=== PATIENT | female | born 1950 | race Caucasian/White ===

== ENCOUNTER 2016-08-19 09:20 | Inpatient (IN) ==
[2016-08-19] MEDS ORDERED: ONDANSETRON 4 MG/2 ML VIAL IV STA (10:13)
[2016-08-19] MEDS ORDERED: SODIUM CHLORIDE 0.9% 500 ML IV STA (10:13)
[2016-08-19 10:25] LABS: Basophils % 0.4 % (0.0-0.8); Eosinophils # 0.1 10*3/uL (0.0-0.87); Eosinophils % 1.4 % (0.00-10.9); Hematocrit 33.2 VOL% (35.7-47.0); Hemoglobin 11.1 GM/DL (12.0-16.0); Immature Granulocytes % 0.6 %; Immature Granulocytes Absolute 0.06 #; Lymphocytes # 0.7 10*3/uL (1.4-4.0); Lymphocytes % 7.3 % (21.3-54.2); Mean Corpuscular HGB Conc 33.4 GM/DL (32-36); Mean Corpuscular Hemoglobin 30 PG (27-34); Mean Corpuscular Volume 90.2 FL (87-102); Mean Platelet Volume 10.2 FL (9.6-12.0); Monocytes # 0.6 10*3/uL (0.11-0.8); Monocytes % 6.1 % (1.7-12.7); Neutrophils # 8.5 10*3/uL (1.4-7.4); Neutrophils % 84.2 % (38.7-73.9); Platelet Count 242 T/CUMM (130-400); Red Blood Count 3.68 MC/CUMM (3.8-5.5); Red Cell Distribution Width 12.9 % (9.3-17.3); White Blood Count 10.1 T/CUMM (4-12)
[2016-08-19] MEDS ORDERED: ONDANSETRON 4 MG/2 ML VIAL ONE ×2 (10:32→10:57)
[2016-08-19 10:38] LABS: Bilirubin,Total 0.5 MG/DL (0.2-1.0); Calcium 8.7 MG/DL (8.5-10.1); Magnesium 2.3 MG/DL (1.8-2.4); Osmolality,Calculated 281.5 MOS/KG (273-304); Potassium 3.2 MMOL/L (3.5-5.1); Total Protein 5.7 G/DL (6.4-8.3)
[2016-08-19 10:44] LABS: Band Neutrophils 2 % (0-10); Eosinophils 3 % (0-10); Hypochromasia Slight; Lymphocytes 3 % (20-55); Platelet Estimate Normal; Segmented Neutrophils 88 % (50-85); Total Cells Counted 100
--- NOTE | 2016-08-19 10:45 | CT Report ---
History: Left lower quadrant and suprapubic pain Date: 08/19/2016 Study: CT abdomen and pelvis without contrast Comparison exam: February 11, 2009 CT abdomen and pelvis Technique: Spiral CT sections were obtained from the lung bases to the pubic symphysis without contrast. The CT exam was performed using one or more of the following dose reduction techniques: Automated exposure control, adjustment of the mA and/or kV according to patient size, or use of iterative reconstruction technique. CT abdomen: The partially visualized lung bases are generally clear without dominique pneumonia. There is no gross pleural or pericardial effusion. There is no evidence of pneumoperitoneum. There is some minimal diffuse fatty infiltration of the liver. The liver, pancreas, bile ducts, adrenal glands, and fluid-filled gallbladder are otherwise unremarkable. The spleen measures mildly prominent at 13.1 x 13.6 x 9.6 cm maximum dimensions, but is grossly similar. There is no hydronephrosis. There is no radiopaque renal or ureteral stone. There is relatively mild atrophy of the left kidney. There is mild ectasia of the infrarenal abdominal aorta 2.4 cm. There is moderate calcification of the wall of the abdominal aorta. There is no evidence of appendicitis. There is some shotty but stable mild retroperitoneal lymphadenopathy in the left para-aortic area, unchanged. CT pelvis: There is some diffuse wall thickening of the sigmoid colon in a region of diverticuli compatible with diverticulitis. There is strandy and hazy inflammatory change in the pericolonic fat. There is no soft tissue mass of the pelvis. There is no encapsulated fluid collection to suggest abscess. The uterus is surgically absent. Impression: Diverticulitis sigmoid colon without abscess. No free intraperitoneal air is identified. No significant changes otherwise compared to the previous study PROCEDURE INTERPRETED AT [facility] DEPARTMENT OF RADIOLOGY Final Report Signed by: Dr. Tasha Teague
[2016-08-19] MEDS ORDERED: cefTRIAXone 1,000 MG VIAL ONE (10:57)
[2016-08-19] MEDS ORDERED: POTASSIUM CHLORIDE 20 MEQ TABLET PO STA (11:08)
[2016-08-19] MEDS ORDERED: LEVOFLOXACIN INJ 500 MG in PREMIX 1 EACH IV STA (11:08)
[2016-08-19] MEDS ORDERED: metroNIDAZOLE INJ 500 MG in PREMIX 1 EACH IV STA (11:08)
[2016-08-19] MEDS ORDERED: HYDROmorphone 2 MG/1 ML VIAL IV STA (11:09)
--- NOTE | 2016-08-19 11:16 | Emergency Department Note ---
Rome Carter Brooke, am scribing for, and in the presence of, Nick Greer MD 10:03. Percy Carter Phillip K, MD, personally performed the services described in this documentation, ascribed by Komal Peter in my presence, and it is both accurate and complete . Arrival - Arrival Chief Complaint: Abdominal / Flank Pain Stated Complaint: abd pain and back pain,nauseated ED Nursing Triage Note: C/o lower abd pain-onset two days ago. Reports that she is having trouble having a bowel movement. Last BM two days ago. +nausea. + diaphoresis. Mode of Arrival: Wheelchair Limitations: No Limitations Source: Patient, RN Notes Reviewed Time Seen by Provider: 08/19/16 09:43 - History of Present Illness HPI Narrative: Patient is a 65 year old female who presents to the ED with c/o lower abdominal pain that started two days ago. Patient says the pain is located over the bladder. She says the pain is worsened when walking and states "it feels like someone hitting me with a hammer." Patient says she now has lower back pain that is located on both sides. She denies having any fever and vomiting but says she has been sweating a lot and been nauseated. Her last bowel movement was a couple of days ago but she says that is normal for her. Patient has history of diverticulitis but says this pain does not feel the same. The last time she had diverticulitis was a couple of years ago and she says she watches what she eats. Patient still has her appendix and gallbadder but has had a hysterectomy. Patient has PMHx of HTN, anxiety, seizures, dyslipidemia, bronchitis, COPD, kidney stones, GERD, and back/neck problems. She is a smoker. Onset (ago): day(s) (2) Date of Last Menstrual Period: hysterectomy Allergies/Adverse Reactions: Allergies Allergy/AdvReac Type Severity Reaction Status Date / Time aspirin Allergy RASH Verified 11/04/14 17:12 Penicillins Allergy ITCHING Verified 11/04/14 17:12 Home Medications: Home Medications Medication Instructions Recorded Confirmed Type Lisinopril/Hydrochlorothiazide 1 tablet PO DAILY 11/04/14 08/19/16 History [Lisinopril-Hctz 20-25 mg Tab] Citalopram [CeleXA] 20 mg PO DAILY #30 tablet 11/06/14 08/19/16 Rx Review of System - Review of System 12 point system: reviewed and no additional remarkable complaints except as stated - Review of System Constitutional: Absent: fever Respiratory: Absent: respiratory distress Gastrointestinal: Present: abdominal pain (lower over bladder), nausea. Absent : vomiting Musculoskeletal: Present: lower back pain (both sides) Skin: Absent: rash Medical,Surgical,& Family Hx - Medical History Cardio: History of: Hypertension Psychological: History of: Anxiety Disorders Neurology: History of: Seizures Endocrine: History of: Dyslipidemia Respiratory: History of: Bronchitis, COPD, Respiratory Problems Genitourinary: History of: Kidney Stones Gastrointestinal: History of: GERD Musculoskeletal: History of: Back/Neck Problems - Surgical History Reproductive Surgeries: Surgical HX of;: Hysterectomy - Family History Family History: Reports;: Family Heart Disease (mother), Family Hypertension ( mother), Family Stroke (mother and grandmother) - Social History Smoking Status: Current every day smoker Frequency of Alcohol Use: None Type of Drug Use: None Exam Vital Signs: Vital Signs Temperature 96.9 F L 08/19/16 09:28 Pulse Rate 87 08/19/16 09:28 Respiratory Rate 20 08/19/16 09:28 Blood Pressure 81/65 08/19/16 09:28 O2 Sat by Pulse Oximetry 98 08/19/16 09:28 - General General appearance: alert, in no apparent distress - Head Head exam: Present: atraumatic, normocephalic - Eye Eye exam: Present: normal appearance, PERRL, EOMI - ENT ENT exam: Present: mucous membranes dry - Neck Neck exam: Present: normal inspection - Chest Chest inspection: Present: normal inspection, symmetric chest wall rise - Respiratory Respiratory exam: Present: wheezes (bilateral diffuse) - Cardiovascular Cardiovascular exam: Present: regular rate, normal rhythm, normal heart sounds - Abdominal Exam Abdominal exam: Present: soft, tenderness (RLQ, suprapubic, and LLQ), normal bowel sounds. Absent: distention, rebound - Extremities Exam Extremities exam: Present: normal inspection. Absent: pedal edema - Back Exam Back exam: Present: normal inspection - Neurological Exam Neurological exam: Present: alert, oriented X3 - Psychiatric Psychiatric exam: Present: normal affect, normal mood - Skin Skin exam: Present: warm, dry, intact, normal color Results - Labs CBC & BMP: 08/19/16 10:01 08/19/16 10:01 Lab Results: I have reviewed the patients labs Labs: Laboratory Tests 08/19/16 10:01 WBC 10.1 RBC 3.68 L Hgb 11.1 L Hct 33.2 L MCV 90.2 MCH 30 MCHC 33.4 RDW 12.9 Plt Count 242 MPV 10.2 Neut % (Auto) 84.2 H Lymph % (Auto) 7.3 L [place] % (Auto) 6.1 Eos % (Auto) 1.4 Baso % (Auto) 0.4 Neut # (Auto) 8.5 H Lymph # (Auto) 0.7 L [place] # (Auto) 0.6 Eos # (Auto) 0.1 Baso # (Auto) 0.0 Immature Gran % 0.6 Nucleated RBC % 0.0 Immature Gran # 0.06 Nucleated RBCs # 0.00 Laboratory Tests 08/19/16 10:01 WBC 10.1 RBC 3.68 L Hgb 11.1 L Hct 33.2 L MCV 90.2 MCH 30 MCHC 33.4 RDW 12.9 Plt Count 242 MPV 10.2 Neut % (Auto) 84.2 H Lymph % (Auto) 7.3 L [place] % (Auto) 6.1 Eos % (Auto) 1.4 Baso % (Auto) 0.4 Neut # (Auto) 8.5 H Lymph # (Auto) 0.7 L [place] # (Auto) 0.6 Eos # (Auto) 0.1 Baso # (Auto) 0.0 Immature Gran % 0.6 Nucleated RBC % 0.0 Immature Gran # 0.06 Nucleated RBCs # 0.00 Laboratory Tests 08/19/16 08/19/16 10:01 10:01 Total Counted 100 Segmented Neutrophils 88 H Band Neutrophils 2 Lymphocytes 3 L Monocytes 4 Eosinophils 3 Platelet Estimate Normal Hypochromasia Slight Sodium 139 Potassium 3.2 L Chloride 106 Carbon Dioxide 23 Anion Gap 13.2 BUN 16 Creatinine 0.80 GFR Calculation 89 BUN/Creatinine Ratio 20.00 Glucose 163 H Calculated Osmolality 281.5 Calcium 8.7 Magnesium 2.3 Total Bilirubin 0.50 AST 17 ALT 28 Alkaline Phosphatase 107 Total Protein 5.7 L Albumin 3.0 L Globulin 2.7 Albumin/Globulin Ratio 1.1 Lipase 57.0 L - Diagnostic Findings Procedure: CT Abdomen and Pelvis: report reviewed by me (Diverticulitis sigmoid colon without abscess. No free intraperitoneal air is identified. No significant changes otherwise compared to the previous study.) Disposition Clinical Impression: Diverticulitis, Hypokalemia Case discussed with: patient Disposition: Still a Patient Condition: Guarded Additional Instructions: Admit to the hospitalist for IV antibiotics.
[2016-08-19] MEDS ORDERED: CIPROFLOXACIN INJ 400 MG in PREMIX 1 EACH IV SCH (11:30)
[2016-08-19] MEDS ORDERED: MAGNESIUM SULF RIDER 2 GM in PREMIX 1 EACH IV PRN (11:30)
[2016-08-19] MEDS ORDERED: PROMETHAZINE 25 MG/1 ML VIAL IM PRN (11:30)
[2016-08-19] MEDS ORDERED: MAGNESIUM SULF RIDER 4 GM in PREMIX 1 EACH IV PRN (11:30)
[2016-08-19] MEDS ORDERED: ONDANSETRON 4 MG/2 ML VIAL IV PRN (11:30)
[2016-08-19] MEDS ORDERED: metroNIDAZOLE 500 MG/100 ML PREMIX IV ONE (11:35)
[2016-08-19] MEDS ORDERED: LEVOFLOXACIN INJ 100 ML IV ONE (11:35)
[2016-08-19] MEDS ORDERED: POTASSIUM CHLORIDE 20 MEQ TABLET PO ONE (11:35)
--- NOTE | 2016-08-19 11:50 | Hospitalist History & Physical ---
<Nathalia Stanleyda - Last Filed: 08/19/16 11:42> Assessment and Plan (1) Diverticulitis Status: Acute Assessment and plan: CT abdomen and pelvis reported diverticula sigmoid colon without abscesses. We will start empiric antibiotic coverage and gently rehydrate. Will start PPIs and consult GI to evaluate. Will manage pain and keep n.p.o. to promote bowel rest. Patient reports episodes similar in nature in the past which was subsequently diagnosed as diverticulitis. Patient states that she has not had any further incidents and generally adheres to her dietary restrictions. Current Visit: Yes (2) Hypokalemia Status: Acute Assessment and plan: Potassium noted at 3.2 at the time of encounter. We will correct and recheck labs in a.m. Current Visit: Yes (3) COPD (chronic obstructive pulmonary disease) with chronic bronchitis Status: Chronic Assessment and plan: The patient reports that she is still a current smoker despite her known diagnosis of COPD. She was noted to have scattered wheezes at the time of ED presentation. We will start inhaled bronchodilators per nebulizer and supplemental oxygen as needed to keep O2 sats above 92%. Current Visit: No (4) Nicotine addiction Status: Acute Assessment and plan: Patient is a current smoker. She verbalizes that she does not have any intent to stop smoking. Nicotine patch offered; patient states "I will let you know if I needed". Will order for good measures patient can request when she needs it. Current Visit: Yes History of Present Illness Chief complaint: Abdominal pain History of present illness: This is a very pleasant 65-year-old female that presented to the ED at [facility] this morning for the evaluation of abdominal pain. Patient has a medical history significant for: hypertension, morbid obesity, chronic obstructive pulmonary disease, anxiety, renal calculi, chronic neck and back pain, nicotine addiction, bronchitis, seizure disorder, and GERD. Patient has a surgical history significant for hysterectomy. The patient reported the onset of the above symptoms 2 days prior to presentation. She described the pain as severe and is greatly increased with movement. In addition, she reports that the pain is unilateral and radiates to her lower back. She reported her last bowel movement 2 days prior to presentation and reports an inability to defecate at the time of presentation. Pertinent positives include : Nausea, abdominal pain, diaphoresis, constipation; pertinent negatives include : Syncope, melena, vomiting, weight loss, and dysuria. The patient was assessed at the time of ED presentation. Labs were obtained; hematology reported white blood cell count at 10.1, hemoglobin 11.1, hematocrit 33.2, neutrophil percentage at 84.2, lymphocyte percentage at 7.3, neutrophil# at 8.5, lymphocyte# at 0.7, segmented neutrophils at 88, and lymphocytes at 3. Chemistry panel reported sodium at 139, potassium 3.2, chloride 106, carbon dioxide 23, anion gap at 13.2, BUN 16, creatinine 0.80, glucose 163, calculated osmolality 281.5, calcium 8.7, magnesium 2.3, total bilirubin 0.50, AST 17, alkaline phosphatase 107, total protein 5.7, albumin 3.0, lipase [address] abdomen and pelvis reported diverticulitis sigmoid colon without abscess and no free intraperitoneal air is identified. After brief discussion with both Dr. Greer and Dr. Garcia, the patient will be admitted to the hospitalist services for continuation of care. Home Medications Medication Instructions Recorded Confirmed Type Lisinopril/Hydrochlorothiazide 1 tablet PO DAILY 11/04/14 08/19/16 History [Lisinopril-Hctz 20-25 mg Tab] Citalopram [CeleXA] 20 mg PO DAILY #30 tablet 11/06/14 08/19/16 Rx Allergies Allergy/AdvReac Type Severity Reaction Status Date / Time aspirin Allergy RASH Verified 11/04/14 17:12 Penicillins Allergy ITCHING Verified 11/04/14 17:12 Medical,Surgical,& Family Hx - Medical History Cardio: History of: Hypertension Psychological: History of: Anxiety Disorders Neurology: History of: Seizures Endocrine: History of: Dyslipidemia Respiratory: History of: Bronchitis, COPD, Respiratory Problems Genitourinary: History of: Kidney Stones Gastrointestinal: History of: GERD Musculoskeletal: History of: Back/Neck Problems - Surgical History Reproductive Surgeries: Surgical HX of;: Hysterectomy - Family History Family History: Reports;: Family Heart Disease (mother), Family Hypertension ( mother), Family Stroke (mother and grandmother) - Social History Smoking Status: Current every day smoker Frequency of Alcohol Use: None Type of Drug Use: None 12 point system: reviewed and no additional remarkable complaints except as stated Exam - Constitutional Vitals: Period Temp Pulse Resp BP Sys/Ellis Pulse Ox Last 24 Hr 96.9 F 87 20 81/65 98 General appearance: no acute distress, morbidly obese - Head Head exam: Present: normal inspection, normocephalic, atraumatic - Eye Eye exam: Present: EOMI. Absent: conjunctival injection Pupils: Present: LEIGH ANN, normal accommodation - ENT ENT exam: Present: normal exam, normal external ear exam, normal oropharynx - Neck Neck exam: Present: normal inspection. Absent: lymphadenopathy, meningismus, tenderness, thyromegaly - Respiratory Respiratory exam: Present: wheezes (Wheezes noted bilaterally) - Cardiovascular Cardiovascular exam: Present: regular rate and rhythm. Absent: diastolic murmur , gallop, JVD, rubs, systolic murmur - GI/Abdominal GI/Abdominal exam: Present: normal bowel sounds, tenderness (Right and left lower quadrant tenderness), other - Extremities Exam Extremities exam: Present: normal inspection, normal capillary refill, full ROM. Absent: edema - Back Exam Back exam: Present: normal inspection, CVA tenderness (L), CVA tenderness (R) - Neurological Exam Neurological exam: Present: alert, oriented X3, CN II-XII intact - Psychiatric Psychiatric exam: Present: normal affect, normal mood - Skin Skin exam: Present: normal color, warm, dry Results - Labs CBC & BMP: 08/19/16 10:01 08/19/16 10:01 Lab Results: I have reviewed the past 24 hour labs <Grisel Garcia - Last Filed: 08/19/16 16:21> History of Present Illness History of present illness: Patient seen and examined independently of CHERYLE Stanley, agree with history, assessment and plan as documented. Patient reports 2 days of lower abdominal pain. On exam she has tenderness, no rebound. Started on levofloxacin and flagyl. NPO for now. GI consulted. Pain control. Exam - Constitutional Vitals: Period Temp Pulse Resp BP Sys/Ellis Pulse Ox Last 24 Hr 96.9 F-98.9 F 80-93 17-20 81-158/65-96 97-100 Results - Labs CBC & BMP: 08/19/16 10:01 08/19/16 10:01
[2016-08-19] MEDS ORDERED: ALBUTEROL 2.5 MG/3 ML NEB RESP TX PRN (11:58)
[2016-08-19 12:59] LABS: Apearance,Urine CLEAR (Clear); Bilirubin,Urine Negative (Negative); Blood, Urine Negative (Negative); Glucose,Urine (UA) Negative (Negative); Ketones,Urine Negative (Negative); Mucus,Urine Occasional /LPF (Occasional); Nitrite,Urine Negative (Negative); Protein,Urine Negative; RBC,Urine 1 /HPF (0-4); Squamous Epithelial Cell,Urine Occasional /HPF (0-10); Urine Color Yellow (Yellow); WBC,Urine 2 /HPF (0-6)
[2016-08-19] MEDS ORDERED: NICOTINE 21 MG/24 HR PATCH TRANSDERM PRN (13:19)
[2016-08-19] MEDS: metroNIDAZOLE INJ 500 MG in PREMIX 1 EACH IV SCH ×2 (13:21→18:06)
[2016-08-19] MEDS: SODIUM CHLORIDE 0.9% 1,000 ML IV SCH (13:28)
[2016-08-19 14:02] LABS: Risk Ratio 4.12; Thyroid Stimulating Hormone 3.24 uIU/ml (0.358-3.74); VLDL CHOLESTEROL 22.4 MG/DL
[2016-08-19] MEDS: ALBUTEROL/IPRATROPIUM 3 ML NEB RESP TX SCH ×2 (14:02→19:25)
[2016-08-19] MEDS: ENOXAPARIN 40 MG/0.4 ML SYRINGE SUBCUT SCH (14:14)
[2016-08-19] MEDS: POTASSIUM CHLORIDE RIDER 10 MEQ in PREMIX 1 EACH IV PRN ×3 (14:14→22:56)
[2016-08-19] MEDS: HYDROmorphone 2 MG/1 ML VIAL IV PRN ×2 (15:46→22:50)
[2016-08-20] MEDS: metroNIDAZOLE INJ 500 MG in PREMIX 1 EACH IV SCH ×3 (00:51→10:29)
[2016-08-20] MEDS: SODIUM CHLORIDE 0.9% 1,000 ML IV SCH ×2 (00:51→18:33)
[2016-08-20] MEDS: ALBUTEROL/IPRATROPIUM 3 ML NEB RESP TX SCH ×4 (00:53→19:00)
[2016-08-20] MEDS: POTASSIUM CHLORIDE RIDER 10 MEQ in PREMIX 1 EACH IV PRN (03:11)
[2016-08-20] MEDS: HYDROmorphone 2 MG/1 ML VIAL IV PRN ×2 (03:20→09:21)
[2016-08-20 07:10] LABS: Basophils % 0.4 % (0.0-0.8); Eosinophils # 0.1 10*3/uL (0.0-0.87); Eosinophils % 1.2 % (0.00-10.9); Lymphocytes # 0.9 10*3/uL (1.4-4.0); Lymphocytes % 8.5 % (21.3-54.2); Mean Corpuscular HGB Conc 33.3 GM/DL (32-36); Mean Corpuscular Hemoglobin 31 PG (27-34); Mean Corpuscular Volume 92.3 FL (87-102); Mean Platelet Volume 10.1 FL (9.6-12.0); Monocytes # 0.7 10*3/uL (0.11-0.8); Monocytes % 6.7 % (1.7-12.7); Neutrophils # 8.4 10*3/uL (1.4-7.4); Neutrophils % 82.2 % (38.7-73.9); Platelet Count 215 T/CUMM (130-400); Red Blood Count 3.25 MC/CUMM (3.8-5.5); Red Cell Distribution Width 13.2 % (9.3-17.3); White Blood Count 10.2 T/CUMM (4-12)
[2016-08-20 07:35] LABS: Albumin 2.7 G/DL (3.4-5.0); Bilirubin,Total 0.5 MG/DL (0.2-1.0); Calcium 8.2 MG/DL (8.5-10.1); Magnesium 1.9 MG/DL (1.8-2.4); Osmolality,Calculated 274.7 MOS/KG (273-304); Total Protein 5.1 G/DL (6.4-8.3)
[2016-08-20] MEDS: LISINOPRIL/HCTZ 20-25 MG TABLET PO SCH (09:13)
[2016-08-20] MEDS: CITALOPRAM 20 MG TABLET PO SCH (09:13)
[2016-08-20] MEDS: PANTOPRAZOLE 40 MG VIAL IV SCH (09:13)
--- NOTE | 2016-08-20 10:17 | XRay Report ---
Portable chest Date: 08/20/2016 Clinical history: Shortness of breath Comparison: 11/04/2014 Technique: Portable AP sitting chest Findings: The heart is minimally enlarged with prominent pulmonary vasculature/carlos. Progressive parenchymal findings especially at the lung bases. Degenerative changes are noted. Impression: The heart is larger in size with findings are consistent with mild CHF/pneumonitis with atelectasis. The pulmonary vasculature/carlos are more prominent and therefore follow-up chest x-ray is recommended. PROCEDURE INTERPRETED AT [facility] DEPARTMENT OF RADIOLOGY Final Report Signed by: Dr. Debra Galvan
--- NOTE | 2016-08-20 11:17 | Gastrointestinal Consult Note ---
Assessment and Plan (1) Abnormal CT of the abdomen Status: Acute Assessment and plan: CT changes most likely explained by acute diverticulitis no abscess is seen continue with IV antibiotics and plan change to p.o. antibiotics once her tenderness has improved. She will go home on antibiotics for about 10 days and will plan colonoscopy approximately 4 weeks from now to exclude other potential pathology. Certainly if her symptoms do not follow I prescribed plan we may need to reconsider earlier endoscopy however this does have some associated risk of perforation that may be best minimized by delay. No alarm symptoms are present. Current Visit: Yes (2) Diverticulitis Status: Acute Assessment and plan: As above. Current Visit: Yes History of Present Illness Chief complaint: Diverticulitis with abnormal CT History of present illness: Ms. Michelle is a 65 year old female Admitted with a 5 day history of progressive suprapubic and left lower quadrant pain. She reports having episodes of diverticulitis in the past she presented to the emergency room where CT scan suggested acute diverticulitis and the patient been admitted. She denies any change in her bowel she is not sure when she had a colon looked at last but thinks it has been more than 10 years ago. She has no reported history of colon polyps no family history. She denies any weight loss. She denies any significant family history of colon pathology. She has had no previous intra-abdominal surgery reported. Home Medications Medication Instructions Recorded Confirmed Type Lisinopril/Hydrochlorothiazide 1 tablet PO DAILY 11/04/14 08/19/16 History [Lisinopril-Hctz 20-25 mg Tab] Citalopram [CeleXA] 20 mg PO DAILY #30 tablet 11/06/14 08/19/16 Rx Allergies Allergy/AdvReac Type Severity Reaction Status Date / Time aspirin Allergy RASH Verified 11/04/14 17:12 Penicillins Allergy ITCHING Verified 11/04/14 17:12 Medical,Surgical,& Family Hx - Medical History Cardio: History of: Hypertension Psychological: History of: Anxiety Disorders No history of: ADHD, Behavior Problems, Bipolar Disorder, Depression, Previous Suicide Attempt, Psychiatric/Substance Abuse Tx, Schizophrenia, Violent Behavior, Psychiatric Problems Neurology: History of: Seizures HEENT: History of: Eye Problem (cataract surgery) Endocrine: History of: Dyslipidemia Respiratory: History of: Bronchitis, COPD, Respiratory Problems Genitourinary: History of: Kidney Stones Gastrointestinal: History of: GERD Musculoskeletal: History of: Back/Neck Problems Hematology: History of: Clotting Problems (pt reports history of blood clots in her legs) - Surgical History Reproductive Surgeries: Surgical HX of;: Hysterectomy - Family History Family History: Reports;: Family Heart Disease (mother), Family Hypertension ( mother), Family Stroke (mother and grandmother) - Social History Smoking Status: Current every day smoker Frequency of Alcohol Use: None Type of Drug Use: None - Constitutional Constitutional: Absent: anorexia, chills, fatigue, fever(s) - EENT Eyes: Absent: blurry vision Ears: Absent: decreased hearing Nose, mouth and throat: Absent: dysphagia, epistaxis, headache(s), hoarseness - Cardiovascular Cardiovascular: Absent: chest pain at rest, chest pain with activity, edema - Respiratory Respiratory: Absent: cough, dyspnea, dyspnea on exertion - Gastrointestinal Gastrointestinal: Present: abdominal pain, bloating. Absent: melena, nausea, odynophagia, vomiting, jaundice - Musculoskeletal Musculoskeletal: Absent: back pain, joint swelling - Neurological Neurological: Absent: confusion, convulsions - Psychiatric Psychiatric: Absent: anxiety, depression - Endocrine Endocrine: Absent: fatigue, polydipsia, polyphagia - Hematologic/Lymphatic Hematologic/Lymphatic: Absent: easy bleeding, easy bruising, lymphadenopathy Exam - Constitutional Vitals: Period Temp Pulse Resp BP Sys/Ellis Pulse Ox Last 24 Hr 96.9 F-100.3 F 80-101 18-20 81-144/65-96 90-100 General appearance: normal weight, no acute distress - Head Head exam: Present: normal inspection, normocephalic, atraumatic - Eye Eye exam: Present: EOMI. Absent: conjunctival injection, scleral icterus Pupils: Present: LEIGH ANN. Absent: dilated - ENT ENT exam: Present: normal exam, normal oropharynx - Neck Neck exam: Absent: lymphadenopathy, thyromegaly - Respiratory Respiratory exam: Present: clear to auscultation bilaterally. Absent: accessory muscle use, rales - Cardiovascular Cardiovascular exam: Present: regular rate and rhythm. Absent: systolic murmur - GI/Abdominal GI/Abdominal exam: Present: tenderness (Left lower quadrant), soft. Absent: ascites, distended, mass, rebound - Extremities Exam Extremities exam: Absent: edema - Neurological Exam Neurological exam: Present: alert, oriented X3 Results - Labs CBC & BMP: 08/20/16 06:41 08/20/16 06:41 Lab Results: I have reviewed the past 24 hour labs - Diagnostic Findings Procedure: CT Abdomen and Pelvis: image reviewed by me, report reviewed by me
[2016-08-20] MEDS ORDERED: LEVOFLOXACIN INJ 500 MG in PREMIX 1 EACH IV SCH (12:00)
--- NOTE | 2016-08-20 13:25 | Hospitalist Progress Note ---
Assessment and Plan (1) Smoker Status: Chronic Current Visit: No (2) Hypertension Status: Chronic Current Visit: No (3) Diverticulitis Status: Acute Assessment and plan: Pain is better. Tolerated lunch. Will switch antibiotics to po. Possible discharge tomorrow. GI consulted, will need colonoscopy in 4 weeks. Current Visit: Yes Hospitalist: Subjective Interval history: Patient doing better today. Reports some mild pain now. Tolerated a clear liquid diet for lunch. Possible discharge tomorrow. Exam - Constitutional Vitals: Period Temp Pulse Resp BP Sys/Ellis Pulse Ox Last 24 Hr 98.3 F-100.3 F 80-101 18-20 132-168/65-87 90-100 General appearance: over weight - Head Head exam: Present: normocephalic, atraumatic - Eye Eye exam: Present: EOMI Pupils: Present: LEIGH ANN - ENT ENT exam: Present: normal exam - Neck Neck exam: Present: normal inspection - Respiratory Respiratory exam: Present: clear to auscultation bilaterally - Cardiovascular Cardiovascular exam: Present: regular rate and rhythm - GI/Abdominal GI/Abdominal exam: Present: normal bowel sounds, soft. Absent: tenderness, rebound - Extremities Exam Extremities exam: Present: normal inspection - Back Exam Back exam: Present: normal inspection - Neurological Exam Neurological exam: Present: alert, oriented X3 - Psychiatric Psychiatric exam: Present: normal affect, normal mood - Skin Skin exam: Present: warm, intact Results - Labs CBC & BMP: 08/20/16 06:41 08/20/16 06:41
[2016-08-20] MEDS: ENOXAPARIN 40 MG/0.4 ML SYRINGE SUBCUT SCH (14:17)
[2016-08-20] MEDS: metroNIDAZOLE 500 MG TABLET PO SCH ×2 (18:33→23:40)
[2016-08-20] MEDS: CIPROFLOXACIN 500 MG TABLET PO SCH (20:15)
[2016-08-21] MEDS: ALBUTEROL/IPRATROPIUM 3 ML NEB RESP TX SCH ×2 (00:10→07:28)
[2016-08-21] MEDS: metroNIDAZOLE 500 MG TABLET PO SCH ×2 (06:00→12:06)
[2016-08-21] MEDS: SODIUM CHLORIDE 0.9% 1,000 ML IV SCH (07:27)
[2016-08-21] MEDS: CIPROFLOXACIN 500 MG TABLET PO SCH (08:09)
[2016-08-21] MEDS: CITALOPRAM 20 MG TABLET PO SCH (08:09)
[2016-08-21] MEDS: PANTOPRAZOLE 40 MG VIAL IV SCH (08:09)
[2016-08-21] MEDS: LISINOPRIL/HCTZ 20-25 MG TABLET PO SCH (08:09)
--- NOTE | 2016-08-21 11:28 | Discharge Summary ---
Hospital Course - Hospital Course Hospital Course: This is a very pleasant 65-year-old female that presented to the ED at [facility] for the evaluation of abdominal pain. Patient has a medical history significant for: hypertension, morbid obesity, chronic obstructive pulmonary disease, anxiety, renal calculi, chronic neck and back pain, nicotine addiction, bronchitis, seizure disorder, and GERD. The patient reported the onset of the above symptoms 2 days prior to presentation. She described the pain as severe and is greatly increased with movement. In addition, she reported that the pain was unilateral and radiated to her lower back. She reported her last bowel movement 2 days prior to presentation. The patient was assessed at the time of ED presentation. Labs were obtained; hematology reported white blood cell count at 10.1, hemoglobin 11.1, hematocrit 33.2, neutrophil percentage at 84.2, lymphocyte percentage at 7.3, neutrophil# at 8.5, lymphocyte# at 0.7, segmented neutrophils at 88, and lymphocytes at 3. Chemistry panel reported sodium at 139, potassium 3.2, chloride 106, carbon dioxide 23, anion gap at 13.2, BUN 16, creatinine 0.80, glucose 163, calculated osmolality 281.5, calcium 8.7, magnesium 2.3, total bilirubin 0.50, AST 17, alkaline phosphatase 107, total protein 5.7, albumin 3.0, lipase [address] abdomen and pelvis reported diverticulitis sigmoid colon without abscess and no free intraperitoneal air is identified. She was admitted to the hospitalist service with diverticulitis and hypokalemia. She was started on ciprofloxacin and flagyl. She was made NPO. Gastroenterology was consulted, she will need 10 days of antibiotics and a colonoscopy in 4 weeks. Her diet was slowly advanced without incident. Her abdominal pain is much improved. She has now reached maximal benefit of inpatient stay and will be discharged home. - Time spent with patient Time with patient DS: Less than 30 minutes (28) Diagnosis - Discharge Diagnosis (1) Smoker Status: Chronic (2) Hypertension Status: Chronic (3) Diverticulitis Status: Chronic Specialty Discharge - Follow Up or Referrals Follow up with: Bruce Myles MD [Physician] - 1 Month Discharge Plan - Discharge Data Disposition: Disch To Home/Self Care Condition at Discharge: Stable Discharge Diet: high fiber diet Activity: increase activity as tolerated Hygiene: no restrictions Weight Bearing at Discharge: weight bear as tolerated Driving: no restrictions Contact your physician if you experience:: fever over 101, pain uncontrolled by pain medications - Discharge Medications New Ciprofloxacin Tab [Cipro Tab] 500 mg PO Q12HR #18 tablet HYDROcodone/ACETAMIN 7.5-325 [[place] 7.5-325] 1 tablet PO Q4H PRN #30 tablet PRN Reason: Pain Moderate (4-7) metroNIDAZOLE TAB [Flagyl Cap/Tab] 500 mg PO Q8HR #27 tablet Continue Lisinopril/Hydrochlorothiazide [Lisinopril-Hctz 20-25 mg Tab] 1 tablet PO DAILY Citalopram [CeleXA] 20 mg PO DAILY #30 tablet - Follow Up or Referral - Forms/Instructions Instructions: How to Stop Smoking (DC), Diverticulitis (DC), Low Fat Diet (DC) , Cigarette Smoking and Your Health (GEN) Exam - Constitutional Vitals: Period Temp Pulse Resp BP Sys/Ellis Pulse Ox Last 24 Hr 97.4 F-98.4 F 78-94 17-20 135-156/68-78 90-99 General appearance: over weight - Head Head exam: Present: normocephalic, atraumatic - Eye Eye exam: Present: EOMI Pupils: Present: LEIGH ANN - ENT ENT exam: Present: normal exam - Neck Neck exam: Present: normal inspection - Respiratory Respiratory exam: Present: clear to auscultation bilaterally. Absent: rhonchi, wheezes - Cardiovascular Cardiovascular exam: Present: regular rate and rhythm - GI/Abdominal GI/Abdominal exam: Present: normal bowel sounds, soft. Absent: tenderness, rebound - Extremities Exam Extremities exam: Present: normal inspection - Back Exam Back exam: Present: normal inspection - Neurological Exam Neurological exam: Present: alert, oriented X3 - Psychiatric Psychiatric exam: Present: normal affect, normal mood - Skin Skin exam: Present: warm, intact Discharge Results Labs on day of discharge: Labs from last 24 hours 08/21/16 08/20/16 08/20/16 06:00 23:20 18:31 POC Glucose 149 H 188 H 160 H 08/20/16 08/20/16 14:59 11:21 POC Glucose 138 H 119 H DS: Provider Date of admission: 08/19/16 11:28 Primary care physician: . No PCP Attending physician on admission: Grisel Gracia MD Consults: 08/19/16 11:32 Consult to Physician [CONS] Routine Comment: Consulting Provider: Bruce Myles When should Consulting Provider be notified: Now Consult to Specialist Group: Gastroenterology Person Notified: tomás Date Notified: 08/19/16 Time Notified: 13:29 Discharging clinician: Grisel Garcia MD
[2016-08-21 12:19] VITALS: BP 148/65
--- NOTE | 2016-08-21 12:35 | Event Note ---
Chief complaint diverticulitis Clinically much better today her tenderness is largely resolved and she is being discharged home on p.o. antibiotics. We discussed if symptoms recur to present back to the emergency room. She will complete her antibiotics and will plan colonoscopy on September 12. She will call earlier if new symptoms develop. Review of systems she denies shortness of breath or chest pain On exam she is alert and oriented 3 in no acute distress vital signs are stable sclerae anicteric oropharynx is benign neck is supple no JVD no thyromegaly Lungs clear to all station no respiratory distress Heart regular rate and rhythm no murmur no edema Abdomen soft nondistended minimal left lower quadrant tenderness much improved no rebound or guarding bowel sounds normoactive Extremities no clubbing cyanosis or edema all 4 extremities. Recommendations: Diverticulitis clinically improved agree with change to p.o. antibiotics plan colonoscopy as discussed on September 12. She will call earlier if needed.
== END 2016-08-21 12:56 | disposition home or self-care (01) | DRG 392 ==
LOC: N.ED 09:20 → N.EDINP 11:28 → N.5E 13:18
PROVIDERS: ADMIT Internal Medicine; ATTEND Internal Medicine

== ENCOUNTER 2016-11-10 05:50 | Inpatient (IN) ==
--- NOTE | 2016-11-03 14:55 | EKG Report ---
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
[2016-11-03 15:41] LABS: Basophils # 0.1 10*3/uL (0.0-0.2); Basophils % 1.3 % (0.0-0.8); Eosinophils # 0.2 10*3/uL (0.0-0.87); Eosinophils % 2.8 % (0.00-10.9); Hematocrit 38.6 VOL% (35.7-47.0); Immature Granulocytes % 0.3 %; Immature Granulocytes Absolute 0.02 #; Lymphocytes # 1.8 10*3/uL (1.4-4.0); Lymphocytes % 25.9 % (21.3-54.2); Mean Corpuscular HGB Conc 33.7 GM/DL (32-36); Mean Corpuscular Hemoglobin 31 PG (27-34); Mean Corpuscular Volume 91.3 FL (87-102); Mean Platelet Volume 9.4 FL (9.6-12.0); Monocytes # 0.4 10*3/uL (0.11-0.8); Monocytes % 6.1 % (1.7-12.7); Neutrophils # 4.3 10*3/uL (1.4-7.4); Neutrophils % 63.6 % (38.7-73.9); Platelet Count 228 T/CUMM (130-400); Red Blood Count 4.23 MC/CUMM (3.8-5.5); Red Cell Distribution Width 13.8 % (9.3-17.3); White Blood Count 6.8 T/CUMM (4-12)
[2016-11-03 16:05] LABS: Alanine Aminotransferase 18 U/L (13-56); Albumin 3.8 G/DL (3.4-5.0); Alkaline Phosphatase 92 U/L (45-117); Aspartate Amino Transferase 10 U/L (0-37); Bilirubin,Total < 0.39 MG/DL (0.2-1.0); Blood Urea Nitrogen 13 MG/DL (7-18); Calcium 8.7 MG/DL (8.5-10.1); Glucose 84 MG/DL (74-106); Osmolality,Calculated 281.1 MOS/KG (273-304); Potassium 4.3 MMOL/L (3.5-5.1); Sodium 142 MMOL/L (136-145); Total Protein 6.5 G/DL (6.4-8.3)
--- NOTE | 2016-11-03 17:34 | XRay Report ---
Exam: XR chest 2V Indication: Preop Comparison study: 08/20/2016 radiograph Findings: Since the the prior study, there has been near complete clearing of the perihilar interstitial opacities seen previously. The heart, mediastinum and bony structures are stable from prior. There is no focal consolidation, pneumothorax or pleural effusion identified. Impression: No acute cardiopulmonary process. Near complete clearing of previously noted perihilar opacities. PROCEDURE INTERPRETED AT [facility] [place] DEPARTMENT OF RADIOLOGY Final Report Signed by: Jose Boland
[2016-11-10] MEDS ORDERED: ALVIMOPAN 12 MG CAPSULE PO ONE (06:00)
[2016-11-10] MEDS ORDERED: cefOXitin 1,000 MG in SODIUM CHLORIDE 0.9% 100 ML IV ONE (06:00)
[2016-11-10] MEDS ORDERED: LORazepam 1 MG TABLET PO ONE (06:08)
[2016-11-10] MEDS ORDERED: FAMOTIDINE 20 MG TABLET PO ONE (06:08)
[2016-11-10] MEDS ORDERED: ALBUTEROL 2.5 MG/3 ML NEB RESP TX ONE ×2 (06:08→06:48)
[2016-11-10] MEDS ORDERED: LORazepam 1 MG TABLET ONE (06:13)
[2016-11-10] MEDS ORDERED: ALVIMOPAN 12 MG CAPSULE ONE (06:13)
[2016-11-10] MEDS ORDERED: SODIUM CHLORIDE 0.9% 100 ML IV ONE (06:13)
[2016-11-10] MEDS ORDERED: FAMOTIDINE 20 MG TABLET ONE (06:13)
[2016-11-10] MEDS ORDERED: LIDOCAINE 1%/EPI INJ 20 ML VIAL ONE (06:31)
[2016-11-10] MEDS ORDERED: BUPIVACAINE MPF 0.25% /EPI 30 ML VIAL ONE (06:31)
[2016-11-10] MEDS ORDERED: LACTATED RINGERS 1,000 ML IV SCH (07:00)
[2016-11-10] MEDS ORDERED: PROPOFOL 200 MG/20 ML VIAL IV ONE (09:00)
[2016-11-10] MEDS ORDERED: LIDOCAINE 100 MG/5 ML SYRINGE ONE (09:00)
[2016-11-10] MEDS ORDERED: ROCURONIUM 100 MG/10 ML VIAL IV ONE (09:00)
[2016-11-10] MEDS ORDERED: PHENYLEPHRINE 1 MG/10 ML SYRINGE IV ONE (09:00)
[2016-11-10] MEDS ORDERED: ONDANSETRON 4 MG/2 ML VIAL ONE ×2 (09:00→12:45)
[2016-11-10] MEDS ORDERED: TISSUE ADHESIVE 1 EACH APPLICATOR TOP ONE (11:57)
[2016-11-10] MEDS ORDERED: SUGAMMADEX 200 MG/2 ML VIAL IV ONE (12:17)
--- NOTE | 2016-11-10 12:32 | Operative Note ---
Date of procedure: 11/10/16 Pre-op diagnosis: Diverticular stricture sigmoid colon Post-op diagnosis: same Procedure: Robotic sigmoid colectomy with stapled colorectal anastomosis 28 mm EEA and mobilization of splenic flexure (22) Findings and technique: After informed consent was obtained the patient was brought the operating room and placed in supine position. After successful induction of general anesthesia the patient was placed in lithotomy position with Rome stirrups and her pressure points padded. Her abdomen and perineum were prepped and draped in usual sterile fashion. Local anesthesia was infiltrated in the right lower quadrant were small transverse incision was made in an open technique used to enter the peritoneal cavity under direct vision. Espinosa cannula was inserted and pneumoperitoneum was established with a camera in place the patient was noted to have extensive adhesions in her left lateral pelvis. 8 mm robotic ports were placed in the right midabdomen and right upper quadrant and a 5 mm education assistant port placed laterally in in the right upper quadrant as well. The robot was then docked with the patient left side up and in some Trendelenburg position. Robotic dissection was carried out taking down extensive adhesions between the sigmoid colon and the left pelvic sidewall. The colon folded over on itself several times. It was severely scarred and strictured at the distal sigmoid. I mobilized the entire descending colon and splenic flexure. As dissection was carried down into the pelvis identified the left ureter and gonadal vessels and stayed medial to the structures and preserved and avoided them. I dissected down to the peritoneal reflection which was very low in this patient. I transected the rectosigmoid with a stapler just above the peritoneal reflection. The colon was then mobilized by dividing its mesentery with the vessel sealer up to the point of normal appearing bowel at the proximal sigmoid that I had marked with a marking pen. The colon was then brought out through the right lower quadrant port site which was enlarged and a Marycarmen wound protector placed. The colon was delivered out through this and transected with a pursestring device and the bowel appeared to be healthy and a 28 mm anvil was placed in this in the bowel. The bowel was returned back to its normal position. It appeared to be well perfused and it easily reached down into the pelvis without tension. I then tried to pass a 25 mm sizer and met resistance several centimeters proximal to my staple line. I had to dissected further beneath the peritoneal reflection and we resected another 4 cm or so of rectosigmoid. At this point I was able to put the 28 mm EEA transanally and achieve an anastomosis under no tension. This was leak tested under water and had no evidence of leak and no tension. The staple line was coated with Tisseel and a 10 mm STEFANIE drain placed in the pelvis and brought up through 1 of the 5 mm port sites. The gas was evacuated from the abdomen and the fascial defect in the right lower quadrant incision at already been closed with running 0 Monocryl suture. The skin incisions were closed with skin clips. She appeared to tolerate the procedure well and she did receive perioperative IV antibiotics as well as DVT prophylaxis. This was a much more difficult procedure than usual. I had to do much more dissection and because of the scarring and difficult anatomy of a involving her: This greatly added to the complexity and essentially doubled the usual expected operative time Anesthesia: ISAIAH, local Surgeon / Physician: Farooq Cunha III. Pediatric Genetic Counselor: Braulio Farmer Estimated blood loss: other (50 mL) Specimens: other (Sigmoid colon) Condition: stable Disposition: PACU Results - Labs CBC & BMP: 11/03/16 15:26 11/03/16 15:26 Discharge Plan - Discharge Medications No Action Lisinopril/Hydrochlorothiazide [Lisinopril-Hctz 20-25 mg Tab] 1 tablet PO DAILY Citalopram [CeleXA] 20 mg PO DAILY #30 tablet - Follow Up or Referral - Forms/Instructions
[2016-11-10 12:38] LABS: Apearance,Urine CLEAR (Clear); Bilirubin,Urine Negative (Negative); Blood, Urine Negative (Negative); Glucose,Urine (UA) Negative (Negative); Ketones,Urine Negative (Negative); Mucus,Urine Occasional /LPF (Occasional); Nitrite,Urine Negative (Negative); Protein,Urine Negative; RBC,Urine 1 /HPF (0-4); Squamous Epithelial Cell,Urine Occasional /HPF (0-10); Urine Color Yellow (Yellow); Urine Specific Gravity 1.009 (1.001-1.035); Urine Urobilinogen < 2.0 EU/DL (0.2-1.0); WBC,Urine <1 /HPF (0-6)
--- NOTE | 2016-11-10 12:39 | Anesthesia Post-Op ---
Anesthesia Post OP - Post Ansesthetic Evaluation Patient seen in post op: Yes Resp: within normal limits CV: within normal limits Mental: within normal limits Temp: within normal limits Righ-Re-Ocyiwrzrd: within normal limits Nausea and Vomiting: within normal limits Pain: within normal limits
[2016-11-10] MEDS ORDERED: HYDROmorphone 2 MG/1 ML VIAL ONE (12:45)
[2016-11-10] MEDS: HYDROmorphone 2 MG/1 ML VIAL IV PRN ×7 (12:45→22:46)
[2016-11-10] MEDS ORDERED: LACTATED RINGERS 2,000 ML IV ONE (12:50)
[2016-11-10] MEDS ORDERED: ACETAMINOPHEN 1,000 MG/100 ML VIAL IV ONE (12:50)
[2016-11-10] MEDS ORDERED: fentaNYL 100 MCG/2 ML VIAL ONE (12:50)
[2016-11-10] MEDS ORDERED: SEVOFLURANE 1 UNIT/15 MINUTE INH ONE (12:50)
[2016-11-10] MEDS ORDERED: MIDAZOLAM 2 MG/2 ML VIAL ONE (12:50)
[2016-11-10] MEDS ORDERED: ONDANSETRON 4 MG/2 ML VIAL IV PRN (12:51)
[2016-11-10] MEDS ORDERED: ALBUTEROL/IPRATROPIUM 3 ML NEB RESP TX PRN (13:48)
--- NOTE | 2016-11-10 14:02 | Operative Note ---
Date of procedure: 11/10/16 Pre-op diagnosis: Diverticular stricture Post-op diagnosis: same Procedure: This is a ssn/ssbn assistant navigator note for the robotic assisted laparoscopic sigmoid colectomy with splenic flexure mobilization performed by Dr. Guerline PECK. I was present at the bedside escrow assistant for the mobilization of the colon and splenic flexure using robotic assisted laparoscopic technique. Lateral to medial mobilization was performed. The sigmoid colon was coiled up in the pelvis and was very difficult and tedious to dissect out but we did get down to healthy rectum and the distal staple line was revised to ensure that we got all of the scarred and stenotic colon out of the patient. The anastomosis was prepared with healthy proximal bowel and reach down to the EEA anastomosis and pelvis with no tension whatsoever. The airleak test was negative and the anastomosis appeared patent, well-perfused, and tension-free. Please see Dr. Cunha full note for details of the entire operation. Surgeon / Physician: Farooq Cunha III. [employer] Agent: Braulio Farmer Results - Labs CBC & BMP: 11/03/16 15:26 11/03/16 15:26 Discharge Plan - Discharge Medications No Action Lisinopril/Hydrochlorothiazide [Lisinopril-Hctz 20-25 mg Tab] 1 tablet PO DAILY Citalopram [CeleXA] 20 mg PO DAILY #30 tablet - Follow Up or Referral - Forms/Instructions
[2016-11-10] MEDS: DEXTROSE 5% NACL 0.9% 1,000 ML IV SCH (14:30)
[2016-11-10 14:45] LABS: Hematocrit 38.6 VOL% (35.7-47.0); Hemoglobin 12.6 GM/DL (12.0-16.0)
--- NOTE | 2016-11-10 17:36 | Event Note ---
She looks good. She had some sleep apnea so we are watching her as she recovers from anesthesia overnight on CPAP in the ICU. She has no complaints and her abdomen is benign and she has good urine output with stable vital signs.
[2016-11-10] MEDS: ONDANSETRON 4 MG/2 ML VIAL IV PRN (19:40)
[2016-11-10] MEDS: metroNIDAZOLE INJ 500 MG in PREMIX 1 EACH IV SCH (19:40)
[2016-11-10 22:14] LABS: Hematocrit 35.6 VOL% (35.7-47.0); Hemoglobin 11.7 GM/DL (12.0-16.0)
[2016-11-11] MEDS: DEXTROSE 5% NACL 0.9% 1,000 ML IV SCH ×3 (00:45→23:17)
[2016-11-11] MEDS: HYDROmorphone 2 MG/1 ML VIAL IV PRN ×7 (02:30→20:50)
[2016-11-11] MEDS: metroNIDAZOLE INJ 500 MG in PREMIX 1 EACH IV SCH (03:27)
[2016-11-11] MEDS: ONDANSETRON 4 MG/2 ML VIAL IV PRN ×2 (03:27→07:33)
[2016-11-11 05:41] LABS: Hematocrit 36.1 VOL% (35.7-47.0); Hemoglobin 11.7 GM/DL (12.0-16.0)
[2016-11-11 05:43] LABS: Basophils % 0.3 % (0.0-0.8); Eosinophils # 0.1 10*3/uL (0.0-0.87); Eosinophils % 0.6 % (0.00-10.9); Hematocrit 35.8 VOL% (35.7-47.0); Hemoglobin 11.7 GM/DL (12.0-16.0); Immature Granulocytes % 0.6 %; Immature Granulocytes Absolute 0.05 #; Lymphocytes # 0.8 10*3/uL (1.4-4.0); Lymphocytes % 9.3 % (21.3-54.2); Mean Corpuscular HGB Conc 32.7 GM/DL (32-36); Mean Corpuscular Hemoglobin 30 PG (27-34); Mean Platelet Volume 10.1 FL (9.6-12.0); Monocytes # 0.7 10*3/uL (0.11-0.8); Monocytes % 8.1 % (1.7-12.7); Neutrophils # 7.3 10*3/uL (1.4-7.4); Neutrophils % 81.1 % (38.7-73.9); Platelet Count 218 T/CUMM (130-400); Red Blood Count 3.85 MC/CUMM (3.8-5.5); Red Cell Distribution Width 14.3 % (9.3-17.3); White Blood Count 8.9 T/CUMM (4-12)
[2016-11-11 06:24] LABS: Calcium 8.3 MG/DL (8.5-10.1); Osmolality,Calculated 279.4 MOS/KG (273-304); Potassium 3.9 MMOL/L (3.5-5.1)
[2016-11-11] MEDS ORDERED: LEVOFLOXACIN INJ 500 MG in PREMIX 1 EACH IV SCH (07:50)
[2016-11-11] MEDS: ENOXAPARIN 40 MG/0.4 ML SYRINGE SUBCUT SCH (09:51)
[2016-11-11] MEDS: PANTOPRAZOLE 40 MG TABLET PO SCH (09:51)
[2016-11-11] MEDS: LISINOPRIL/HCTZ 20-25 MG TABLET PO SCH (09:51)
--- NOTE | 2016-11-11 11:02 | Event Note ---
She feels well. She has no complaints and her pain is controlled. We have had no airway difficulties. We kept her in the ICU because of her sleep apnea. Her abdomen is benign and her lab work looks good. She has stable vital signs. It is okay for her to go to the floor this morning.
--- NOTE | 2016-11-11 11:19 | Pathology Report from [facility] ---
[facility] ACCESSION # : [id number] PATIENT NAME : Muriel Burns ORDERING DR : RENZO WOMACK III, MD CLINICAL HX: Colon stricture POST-OP DX: Same SPECIMEN INFO: #1 Sigmoid colon #2 Proximal rectum #3 Proximal rectum GROSS DESCRIPTION: #1 Received fresh labeled with the patients name MURIEL BURNS and is a colon segment measuring 11.0 x 2.0 cm. Opening the colon reveals a somewhat constricted lumen with scattered non bleeding diverticula seen. Also seen is a 0.3 x 0.3 cm sessile polyp which is situated in the central aspect of the colon, 6.5 cm from one margin and 5.8 cm from the opposite margin. Sections submitted: 1A and 1B surgical margins, 1C account maintenance representative diverticula, 1D polyp.#2 Received in formalin labeled with the patients name MURIEL BURNS and #2 consists of a piece of colon tissue measuring 3.0 x 2.5 cm. No abnormalities are grossly appreciated. Marzipan Maker sections of margin submitted in cassette #2.#3 Received in formalin labeled with the patients name MURIEL BURNS and #3 consists of a shaggy piece of colon tissue measuring 3.0 x 2.0 cm. Also received are two ring -shaped fragments of colon tissue measuring 2.0 x 2.0 cm each. No abnormalities are grossly appreciated. Marzipan Maker sections submitted in cassette #3. DIAGNOSIS FOR MURIEL BURNS: #1 SIGMOID COLON, PARTIAL COLECTOMY: Benign colonic mucosa with diverticula and adjacent hemorrhage, margins viable. Benign hyperplastic polyps.#2 PROXIMAL RECTUM, PARTIAL COLECTOMY: Benign colonic mucosa , margins viable.#3 PROXIMAL RECTUM, PARTIAL COLECTOMY: Benign colonic mucosa with focal mucosal superficial ulceration. COLLECTED DATE: 11/10/2016 [facility] REPORT DATE: 11/11/2016 ELECTRONICALLY SIGNED BY: Desi Campoverde M.D. 11/11/2016 - 9:50:58 MTDLizzie
--- NOTE | 2016-11-11 18:19 | Pathology Report from [facility] ---
[facility] ACCESSION # : [id number] PATIENT NAME : Muriel Burns ORDERING DR : RENZO WOMACK III, MD CLINICAL HX: Colon stricture POST-OP DX: Same SPECIMEN INFO: #1 Sigmoid colon #2 Proximal rectum #3 Proximal rectum GROSS DESCRIPTION: #1 Received fresh labeled with the patients name MURIEL BURNS and is a colon segment measuring 11.0 x 2.0 cm. Opening the colon reveals a somewhat constricted lumen with scattered non bleeding diverticula seen. Also seen is a 0.3 x 0.3 cm sessile polyp which is situated in the central aspect of the colon, 6.5 cm from one margin and 5.8 cm from the opposite margin. Sections submitted: 1A and 1B surgical margins, 1C representative government relations diverticula, 1D polyp.#2 Received in formalin labeled with the patients name MURIEL BURNS and #2 consists of a piece of colon tissue measuring 3.0 x 2.5 cm. No abnormalities are grossly appreciated. Traffic Control Signaler sections of margin submitted in cassette #2.#3 Received in formalin labeled with the patients name MURIEL BURNS and #3 consists of a shaggy piece of colon tissue measuring 3.0 x 2.0 cm. Also received are two ring -shaped fragments of colon tissue measuring 2.0 x 2.0 cm each. No abnormalities are grossly appreciated. Traffic Control Signaler sections submitted in cassette #3. DIAGNOSIS FOR MURIEL BURNS: #1 SIGMOID COLON, PARTIAL COLECTOMY: Benign colonic mucosa with diverticula and adjacent hemorrhage, margins viable. Benign hyperplastic polyps.#2 PROXIMAL RECTUM, PARTIAL COLECTOMY: Benign colonic mucosa , margins viable.#3 PROXIMAL RECTUM, PARTIAL COLECTOMY: Benign colonic mucosa with focal mucosal superficial ulceration. COLLECTED DATE: 11/10/2016 [facility] REPORT DATE: 11/11/2016 ELECTRONICALLY SIGNED BY: Desi Campoverde M.D. 11/11/2016 - 9:50:58 MTDLizzie
[2016-11-12] MEDS: HYDROmorphone 2 MG/1 ML VIAL IV PRN ×5 (00:36→21:02)
[2016-11-12 06:59] LABS: Calcium 8.4 MG/DL (8.5-10.1); Osmolality,Calculated 278.4 MOS/KG (273-304); Potassium 3.4 MMOL/L (3.5-5.1)
[2016-11-12 09:27] LABS: Basophils % 0.4 % (0.0-0.8); Eosinophils # 0.1 10*3/uL (0.0-0.87); Eosinophils % 1.5 % (0.00-10.9); Hematocrit 31.8 VOL% (35.7-47.0); Hemoglobin 10.4 GM/DL (12.0-16.0); Immature Granulocytes % 0.4 %; Immature Granulocytes Absolute 0.03 #; Lymphocytes # 0.6 10*3/uL (1.4-4.0); Lymphocytes % 8.5 % (21.3-54.2); Mean Corpuscular HGB Conc 32.7 GM/DL (32-36); Mean Corpuscular Hemoglobin 31 PG (27-34); Mean Corpuscular Volume 93.8 FL (87-102); Mean Platelet Volume 10.1 FL (9.6-12.0); Monocytes # 0.7 10*3/uL (0.11-0.8); Monocytes % 9.2 % (1.7-12.7); Neutrophils # 6.1 10*3/uL (1.4-7.4); Platelet Count 172 T/CUMM (130-400); Red Blood Count 3.39 MC/CUMM (3.8-5.5); Red Cell Distribution Width 14.4 % (9.3-17.3); White Blood Count 7.6 T/CUMM (4-12)
[2016-11-12] MEDS: ENOXAPARIN 40 MG/0.4 ML SYRINGE SUBCUT SCH (09:37)
[2016-11-12] MEDS: PANTOPRAZOLE 40 MG TABLET PO SCH (09:37)
[2016-11-12] MEDS: CITALOPRAM 20 MG TABLET PO SCH (09:38)
[2016-11-12] MEDS: LISINOPRIL/HCTZ 20-25 MG TABLET PO SCH (09:38)
--- NOTE | 2016-11-12 10:51 | Event Note ---
This patient is postop day #2 after robotic assisted laparoscopic sigmoid colectomy for diverticular stricture. She is doing well overall. She had some nausea yesterday but it has resolved and she feels hungry today. She is afebrile with normal vital signs. She has hypoactive bowel sounds but they are present. Her incisions look good. STEFANIE drain is serosanguineous and low output. Patient does have some wheezing on exam and she is an active smoker. She had nebulizer treatments ordered as needed but I am going to schedule those today and replace her potassium, allow her to have a full liquid diet, and repeat her lab work tomorrow. Increase ambulation today. Discontinue IV fluids.
[2016-11-12] MEDS: ALBUTEROL/IPRATROPIUM 3 ML NEB RESP TX SCH ×4 (11:53→23:53)
[2016-11-12] MEDS: POTASSIUM CHLORIDE RIDER 10 MEQ in PREMIX 1 EACH IV SCH ×6 (12:36→21:01)
[2016-11-12] MEDS: DEXTROSE 5% NACL 0.9% 1,000 ML IV SCH (13:43)
[2016-11-12] MEDS ORDERED: POTASSIUM CHLORIDE RIDER 10 MEQ in PREMIX 1 EACH IV SCH (23:30)
[2016-11-13] MEDS: POTASSIUM CHLORIDE RIDER 10 MEQ in PREMIX 1 EACH IV SCH (02:51)
[2016-11-13] MEDS: ALBUTEROL/IPRATROPIUM 3 ML NEB RESP TX SCH ×6 (03:12→23:56)
[2016-11-13 06:54] LABS: Calcium 8.6 MG/DL (8.5-10.1); Osmolality,Calculated 269.8 MOS/KG (273-304); Potassium 3.5 MMOL/L (3.5-5.1)
--- NOTE | 2016-11-13 08:11 | Event Note ---
She feels well. She is tolerating a diet. Her wound looks good and her abdomen is benign. There is clear serosanguineous drainage in her STEFANIE drain. She is having flatus and bowel movement. We will advance her diet. I see no signs of infection leak or any complication at this point.
[2016-11-13] MEDS: PANTOPRAZOLE 40 MG TABLET PO SCH (09:30)
[2016-11-13] MEDS: LISINOPRIL/HCTZ 20-25 MG TABLET PO SCH (09:30)
[2016-11-13] MEDS: CITALOPRAM 20 MG TABLET PO SCH (09:30)
[2016-11-13] MEDS: ENOXAPARIN 40 MG/0.4 ML SYRINGE SUBCUT SCH (09:31)
[2016-11-13] MEDS: HYDROmorphone 2 MG/1 ML VIAL IV PRN (13:29)
[2016-11-14] MEDS: ALBUTEROL/IPRATROPIUM 3 ML NEB RESP TX SCH ×3 (04:15→11:38)
--- NOTE | 2016-11-14 07:00 | Event Note ---
She feels well. She is tolerating a diet and having normal bowel movements. She has no nausea or vomiting or abdominal pain. She is afebrile with stable vital signs. Her wounds look good. We can remove her drain today and discharge her home. She can follow-up with me in the next week or 2.
[2016-11-14 07:47] LABS: Calcium 8.5 MG/DL (8.5-10.1); Osmolality,Calculated 275.5 MOS/KG (273-304); Potassium 3.2 MMOL/L (3.5-5.1)
[2016-11-14 08:29] LABS: Basophils % 0.8 % (0.0-0.8); Eosinophils # 0.2 10*3/uL (0.0-0.87); Hematocrit 32.5 VOL% (35.7-47.0); Hemoglobin 11.1 GM/DL (12.0-16.0); Immature Granulocytes % 0.4 %; Immature Granulocytes Absolute 0.02 #; Lymphocytes # 0.9 10*3/uL (1.4-4.0); Lymphocytes % 17.4 % (21.3-54.2); Mean Corpuscular HGB Conc 34.2 GM/DL (32-36); Mean Corpuscular Hemoglobin 31 PG (27-34); Mean Platelet Volume 9.6 FL (9.6-12.0); Monocytes # 0.4 10*3/uL (0.11-0.8); Monocytes % 7.1 % (1.7-12.7); Neutrophils # 3.8 10*3/uL (1.4-7.4); Neutrophils % 71.3 % (38.7-73.9); Platelet Count 189 T/CUMM (130-400); Red Blood Count 3.61 MC/CUMM (3.8-5.5); Red Cell Distribution Width 13.7 % (9.3-17.3); White Blood Count 5.3 T/CUMM (4-12)
[2016-11-14] MEDS: ENOXAPARIN 40 MG/0.4 ML SYRINGE SUBCUT SCH (09:29)
[2016-11-14] MEDS: CITALOPRAM 20 MG TABLET PO SCH (09:29)
[2016-11-14] MEDS: LISINOPRIL/HCTZ 20-25 MG TABLET PO SCH (09:29)
[2016-11-14] MEDS: PANTOPRAZOLE 40 MG TABLET PO SCH (09:29)
[2016-11-14] MEDS ORDERED: POTASSIUM CHLORIDE 20 MEQ PACK PO ONE (09:32)
--- NOTE | 2016-11-14 09:49 | Discharge Summary ---
Hospital Course - Hospital Course Hospital Course: Patient is a 66-year-old female who underwent robotic sigmoid colectomy with stapled colorectal anastomosis and mobilization of the splenic flexure for diverticular stricture of the sigmoid colon on 11/10/[address] Farooq Cunha III. she required overnight monitoring the ICU with CPAP she recovered from anesthesia. She recovered well and was transferred her for the following day. There was concern for sleep apnea and sleep studies was consulted; we appreciate their input. She recovered her bowel function was tolerating oral intake, passing flatus and her bowels, and voiding without difficulty at the time of discharge. Her STEFANIE drain was discharged on her last day. Pathology revealed benign colonic mucosa with diverticula and benign hyperplastic polyps; see path report for full details. Hypokalemia noted for on the day of discharge which was treated. Recommend to follow with her PCP. She was discharged home in good condition in the care of her daughter. Diagnosis - Discharge Diagnosis (1) Colonic stricture Status: Acute (2) Diverticulosis Status: Acute (3) Suspected sleep apnea Status: Acute (4) Hypokalemia Status: Acute (5) COPD (chronic obstructive pulmonary disease) with chronic bronchitis Status: Chronic (6) Obesity Status: Chronic (7) Smoker Status: Chronic Discharge Plan - Discharge Data Disposition: Disch To Home/Self Care Condition at Discharge: Stable Discharge Diet: advance to your usual diet Activity: no lifting (> 10lb) Hygiene: may shower Driving: not until seen by doctor Contact your physician if you experience:: fever over 101, Redness or swelling, Nausea/Vomiting, Shortness of breath, Bleeding, pain uncontrolled by pain medications Wound / Dressing Care Instructions: Keep surgical incisions clean, dry and covered - Discharge Medications New Albuterol Inhaler [Proventil Inhaler] 2 puff INH Q6H PRN #1 inhaler PRN Reason: Shortness Of Breath/Wheezing HYDROcodone/ACETAMIN 7.5-325 [[place] 7.5-325] 1 tablet PO Q4H PRN #30 tablet PRN Reason: Pain Moderate To Severe (4-10) Continue Lisinopril/Hydrochlorothiazide [Lisinopril-Hctz 20-25 mg Tab] 1 tablet PO DAILY Citalopram [CeleXA] 20 mg PO DAILY #30 tablet - Follow Up or Referral Follow Up: Yessenia Delarosa MD [Physician] - (as recommended by Dr. Delarosa) Farooq Cunha III., MD [Physician] - (1-2 weeks) - Forms/Instructions Instructions: Laparoscopic Bowel Resection (DC) Additional Discharge Instructions: Hospital f/u with PCP in 5-7 days and check potassium level. Exam - Constitutional Vitals: Period Temp Pulse Resp BP Sys/Ellis Pulse Ox Last 24 Hr 97.1 F-98.6 F 75-95 18-20 125-160/70-89 92-99 General appearance: no acute distress, morbidly obese - Respiratory Respiratory exam: Present: clear to auscultation bilaterally - Cardiovascular Cardiovascular exam: Present: regular rate and rhythm - GI/Abdominal GI/Abdominal exam: Present: normal bowel sounds, tenderness (minimal p/o tenderness about incisions), soft, other (STEFANIE drain with minimal serosanguinous output). Absent: distended, firm - Extremities Exam Extremities exam: Absent: calf tenderness, edema - Neurological Exam Neurological exam: Present: alert, oriented X3 - Psychiatric Psychiatric exam: Present: normal affect, normal mood - Skin Skin exam: Present: normal color Discharge Results Procedures and tests throughout hospitalization: #1 robotic sigmoid colectomy with stable collateral colorectal anastomosis and mobilization of splenic flexure for diverticular stricture of the sigmoid colon ; pathology as follows: #1 SIGMOID COLON, PARTIAL COLECTOMY: Benign colonic mucosa with diverticula and adjacent hemorrhage, margins viable. Benign hyperplastic polyps.#2 PROXIMAL RECTUM, PARTIAL COLECTOMY: Benign colonic mucosa , margins viable.#3 PROXIMAL RECTUM, PARTIAL COLECTOMY: Benign colonic mucosa with focal mucosal superficial ulceration. Labs on day of discharge: Labs from last 24 hours 11/14/16 11/14/16 08:13 05:52 WBC 5.3 D RBC 3.61 L Hgb 11.1 L Hct 32.5 L MCV 90.0 MCH 31 MCHC 34.2 RDW 13.7 Plt Count 189 MPV 9.6 Neut % (Auto) 71.3 Lymph % (Auto) 17.4 L [place] % (Auto) 7.1 Eos % (Auto) 3.0 Baso % (Auto) 0.8 Neut # (Auto) 3.8 Lymph # (Auto) 0.9 L [place] # (Auto) 0.4 Eos # (Auto) 0.2 Baso # (Auto) 0.0 Immature Gran % 0.4 Nucleated RBC % 0.0 Immature Gran # 0.02 Nucleated RBCs # 0.00 Immature Plt Fraction 0.0 Sodium 139 Potassium 3.2 L Chloride 103 Carbon Dioxide 27 Anion Gap 12.2 BUN 9 Creatinine 0.60 GFR Calculation 109 BUN/Creatinine Ratio 15.00 Glucose 103 Calculated Osmolality 275.5 Calcium 8.5 Magnesium 2.0 DS: Provider Date of admission: 11/10/16 13:48 Primary care physician: Petar Zuluaga MD Attending physician on admission: Farooq Cunha III., Consults: 11/11/16 12:57 Consult to Physician [CONS] Routine Comment: suspected sleep apnea Consulting Provider: Yessenia Delarosa Consulting Provider Notified: Yes When should Consulting Provider be notified: Now Person Notified: cherelle called ext. [phone] Date Notified: 11/11/16 Time Notified: 13:25 Discharging clinician: Skye Valenzuela PA-C
[2016-11-14 11:07] VITALS: BP 167/78
== END 2016-11-14 13:20 | disposition home or self-care (01) | DRG 330 ==
LOC: N.OR 05:50 → N.SDSINP 05:52 → N.ICU 14:18 → N.3E 11-11 10:57
PROVIDERS: ADMIT Surgery; ATTEND Surgery

== ENCOUNTER 2018-04-28 12:40 | Inpatient (IN) ==
[2018-04-28 14:15] LABS: Basophils # 0.1 10*3/uL (0.0-0.2); Basophils % 1.2 % (0.0-0.8); Eosinophils # 0.3 10*3/uL (0.0-0.87); Eosinophils % 4.2 % (0.00-10.9); Hematocrit 37.7 VOL% (35.7-47.0); Immature Granulocytes % 0.5 %; Immature Granulocytes Absolute 0.03 #; Lymphocytes # 1.2 10*3/uL (1.4-4.0); Lymphocytes % 19.8 % (21.3-54.2); Mean Corpuscular HGB Conc 31.8 GM/DL (32-36); Mean Corpuscular Hemoglobin 30 PG (27-34); Mean Corpuscular Volume 94.7 FL (87-102); Mean Platelet Volume 10.3 FL (9.6-12.0); Monocytes # 0.3 10*3/uL (0.11-0.8); Monocytes % 5.4 % (1.7-12.7); Neutrophils # 4.1 10*3/uL (1.4-7.4); Neutrophils % 68.9 % (38.7-73.9); Platelet Count 183 T/CUMM (130-400); Red Blood Count 3.98 MC/CUMM (3.8-5.5); Red Cell Distribution Width 13.4 % (9.3-17.3); White Blood Count 5.9 T/CUMM (4-12)
[2018-04-28 14:22] LABS: PT Patient Result 10.5 SECS; Partial Thromboplastin Time 27.1 SECS (0-40)
[2018-04-28 14:31] LABS: Albumin 3.6 G/DL (3.4-5.0); Bilirubin,Total 0.8 MG/DL (0.2-1.0); Calcium 8.9 MG/DL (8.5-10.1); Osmolality,Calculated 283.1 MOS/KG (273-304); Potassium 3.5 MMOL/L (3.5-5.1); Total Protein 6.4 G/DL (6.4-8.3)
[2018-04-28 14:48] LABS: Barbiturates Screen,Urine Negative (Negative); Benzodiazepines Screen,Urine Negative (Negative); Cannabinoid Screen,Urine Negative (Negative); Opiate Screen,Urine Negative (Negative); Phencyclidine Screen,Urine Negative (Negative)
[2018-04-28 15:13] LABS: Apearance,Urine CLEAR (Clear); Bilirubin,Urine Negative (Negative); Blood, Urine Negative (Negative); Glucose,Urine (UA) Negative (Negative); Hyaline Casts,Urine 1 /LPF (0-3); Ketones,Urine Negative (Negative); Mucus,Urine Occasional /LPF (Occasional); Nitrite,Urine Negative (Negative); Protein,Urine Negative; Squamous Epithelial Cell,Urine Occasional /HPF (0-10); Urine Color Yellow (Yellow); Urine Specific Gravity 1.012 (1.001-1.035); Urine Urobilinogen < 2.0 EU/DL (0.2-1.0); WBC,Urine <1 /HPF (0-6)
[2018-04-28] MEDS ORDERED: LABETALOL 20 MG/4 ML SYRINGE IV PRN (16:58)
[2018-04-28] MEDS ORDERED: ONDANSETRON 4 MG/2 ML VIAL IV PRN (16:58)
[2018-04-28] MEDS ORDERED: ACETAMINOPHEN 325 MG TABLET PO PRN (16:58)
[2018-04-28] MEDS: SODIUM CHLORIDE 0.9% 1,000 ML IV SCH (17:15)
[2018-04-28] MEDS: ENOXAPARIN 40 MG/0.4 ML SYRINGE SUBCUT SCH (18:53)
[2018-04-28] MEDS ORDERED: ALBUTEROL 2.5 MG/3 ML NEB RESP TX PRN (19:46)
[2018-04-28] MEDS ORDERED: traZODone 50 MG TABLET PO PRN (19:46)
[2018-04-28] MEDS ORDERED: PNEUMOCOCCAL VACCINE (13 VALENT) 0.5 ML SYRINGE IM ONE (20:16)
[2018-04-28] MEDS ORDERED: INFLUENZA VIRUS VACCINE 0.5 ML SYRINGE IM ONE (20:16)
[2018-04-28] MEDS: BUDESONIDE/FORMOTEROL 160-4.5 INHALER 6 GM INH SCH (21:43)
[2018-04-28] MEDS: CLOPIDOGREL 75 MG TABLET PO SCH (21:45)
[2018-04-28] MEDS: clonazePAM 0.5 MG TABLET PO SCH (21:45)
[2018-04-28] MEDS: ATORVASTATIN 40 MG TABLET PO SCH (21:46)
[2018-04-29] MEDS: SODIUM CHLORIDE 0.9% 1,000 ML IV SCH ×3 (04:24→18:04)
[2018-04-29 04:38] LABS: Basophils # 0.1 10*3/uL (0.0-0.2); Basophils % 1.2 % (0.0-0.8); Eosinophils # 0.2 10*3/uL (0.0-0.87); Hematocrit 32.8 VOL% (35.7-47.0); Hemoglobin 10.3 GM/DL (12.0-16.0); Immature Granulocytes % 0.5 %; Immature Granulocytes Absolute 0.02 #; Lymphocytes # 1.4 10*3/uL (1.4-4.0); Lymphocytes % 34.3 % (21.3-54.2); Mean Corpuscular HGB Conc 31.4 GM/DL (32-36); Mean Corpuscular Hemoglobin 30 PG (27-34); Mean Platelet Volume 10.5 FL (9.6-12.0); Monocytes # 0.3 10*3/uL (0.11-0.8); Monocytes % 7.2 % (1.7-12.7); Neutrophils # 2.1 10*3/uL (1.4-7.4); Neutrophils % 52.8 % (38.7-73.9); Platelet Count 179 T/CUMM (130-400); Red Blood Count 3.49 MC/CUMM (3.8-5.5); Red Cell Distribution Width 13.7 % (9.3-17.3)
[2018-04-29 05:12] LABS: Calcium 8.2 MG/DL (8.5-10.1); Potassium 3.7 MMOL/L (3.5-5.1); Risk Ratio 3.48; Thyroid Stimulating Hormone 2.18 uIU/ml (0.358-3.74); VLDL CHOLESTEROL 34.8 MG/DL
[2018-04-29] MEDS: LEVOTHYROXINE 50 MCG TABLET PO SCH (06:36)
[2018-04-29] MEDS ORDERED: LISINOPRIL/HCTZ 20-25 MG TABLET PO SCH (09:00)
[2018-04-29] MEDS: CITALOPRAM 20 MG TABLET PO SCH (09:54)
[2018-04-29] MEDS: PANTOPRAZOLE 40 MG TABLET PO SCH (09:54)
[2018-04-29] MEDS: BUDESONIDE/FORMOTEROL 160-4.5 INHALER 6 GM INH SCH ×2 (09:54→20:46)
[2018-04-29] MEDS: ENOXAPARIN 40 MG/0.4 ML SYRINGE SUBCUT SCH (16:48)
[2018-04-29] MEDS: clonazePAM 0.5 MG TABLET PO SCH (20:44)
[2018-04-29] MEDS: ATORVASTATIN 40 MG TABLET PO SCH (20:44)
[2018-04-29] MEDS: CLOPIDOGREL 75 MG TABLET PO SCH (20:44)
[2018-04-30] MEDS: SODIUM CHLORIDE 0.9% 1,000 ML IV SCH ×3 (01:14→19:00)
[2018-04-30 05:11] LABS: Basophils # 0.1 10*3/uL (0.0-0.2); Basophils % 1.4 % (0.0-0.8); Eosinophils # 0.2 10*3/uL (0.0-0.87); Eosinophils % 4.9 % (0.00-10.9); Hematocrit 32.8 VOL% (35.7-47.0); Hemoglobin 10.3 GM/DL (12.0-16.0); Immature Granulocytes % 0.7 %; Immature Granulocytes Absolute 0.03 #; Lymphocytes # 1.2 10*3/uL (1.4-4.0); Lymphocytes % 28.6 % (21.3-54.2); Mean Corpuscular HGB Conc 31.4 GM/DL (32-36); Mean Corpuscular Hemoglobin 29 PG (27-34); Mean Corpuscular Volume 93.4 FL (87-102); Mean Platelet Volume 10.2 FL (9.6-12.0); Monocytes # 0.3 10*3/uL (0.11-0.8); Monocytes % 5.9 % (1.7-12.7); Neutrophils # 2.5 10*3/uL (1.4-7.4); Neutrophils % 58.5 % (38.7-73.9); Platelet Count 171 T/CUMM (130-400); Red Blood Count 3.51 MC/CUMM (3.8-5.5); Red Cell Distribution Width 13.2 % (9.3-17.3); White Blood Count 4.3 T/CUMM (4-12)
[2018-04-30 05:34] LABS: Calcium 8.3 MG/DL (8.5-10.1); Potassium 3.9 MMOL/L (3.5-5.1)
[2018-04-30] MEDS: LEVOTHYROXINE 50 MCG TABLET PO SCH (05:43)
[2018-04-30] MEDS: PANTOPRAZOLE 40 MG TABLET PO SCH (08:54)
[2018-04-30] MEDS: BUDESONIDE/FORMOTEROL 160-4.5 INHALER 6 GM INH SCH ×2 (08:54→20:31)
[2018-04-30] MEDS: CITALOPRAM 20 MG TABLET PO SCH (08:54)
[2018-04-30] MEDS: ENOXAPARIN 40 MG/0.4 ML SYRINGE SUBCUT SCH (18:01)
[2018-04-30] MEDS: ATORVASTATIN 40 MG TABLET PO SCH (20:31)
[2018-04-30] MEDS: CLOPIDOGREL 75 MG TABLET PO SCH (20:31)
[2018-04-30] MEDS: clonazePAM 0.5 MG TABLET PO SCH (20:31)
[2018-05-01] MEDS: SODIUM CHLORIDE 0.9% 1,000 ML IV SCH (05:00)
[2018-05-01] MEDS: LEVOTHYROXINE 50 MCG TABLET PO SCH (05:29)
[2018-05-01] MEDS: PANTOPRAZOLE 40 MG TABLET PO SCH (09:03)
[2018-05-01] MEDS: CITALOPRAM 20 MG TABLET PO SCH (09:03)
[2018-05-01] MEDS: BUDESONIDE/FORMOTEROL 160-4.5 INHALER 6 GM INH SCH (09:03)
[2018-05-01] MEDS ORDERED: LISINOPRIL/HCTZ 20-25 MG TABLET PO SCH (09:30)
[2018-05-01 12:19] VITALS: BP 162/95
== END 2018-05-01 12:50 | disposition home health service (06) | DRG 68 ==
LOC: N.ED 12:40 → N.EDINP 16:58 → N.4E 19:44
PROVIDERS: ADMIT Internal Medicine; ATTEND Internal Medicine